=== PATIENT | female | born 1975 | race Caucasian/White ===

== ENCOUNTER 2016-08-20 09:43 | Emergency (ER) | payer MEDICARE, OTHER ==
[~2016-08-20 09:43] MED LIST: ASPIRIN EC81 MG PO
[2016-08-20 11:23] LABS: HEMOGLOBIN 11.7 gm/dl (12.3-15.3); RED BLOOD COUNT 3.53 M/UL (4.00-5.10); WHITE BLOOD COUNT 5.9 K/UL (4.5-11.0)
== END 2016-08-20 15:50 | disposition home or self-care (01) ==
LOC: ER1 09:43
PROVIDERS: Physician Assistant
DX: R51 Headache (principal); R11.2 Nausea with vomiting, unspecified; I25.2 Old myocardial infarction; E11.22 Type 2 diabetes mellitus with diabetic chronic kidney disease; I12.9 Hypertensive chronic kidney disease with stage 1 through stage 4 chronic kidney disease, or unspecified chronic kidney disease; N18.9 Chronic kidney disease, unspecified; Z99.2 Dependence on renal dialysis; Z95.5 Presence of coronary angioplasty implant and graft; Z88.2 Allergy status to sulfonamides; Z88.5 Allergy status to narcotic agent; Z88.8 Allergy status to other drugs, medicaments and biological substances; Z79.82 Long term (current) use of aspirin; Z79.899 Other long term (current) drug therapy
CPT/HCPCS: 36415; 70450; 80053; 82150; 82550; 82553; 83690; 83874; 84484; 84703; 85025; 93005; 96372; 99284; J2270; J2405

== ENCOUNTER 2016-09-17 18:26 | Emergency (ER) | payer MEDICARE, OTHER ==
[2016-09-17 23:46] LABS: HEMOGLOBIN 12.9 gm/dl (12.3-15.3); RED BLOOD COUNT 3.9 M/UL (4.00-5.10); WHITE BLOOD COUNT 6.9 K/UL (4.5-11.0)
== END 2016-09-18 05:25 | disposition home or self-care (01) ==
LOC: ER1 18:26
PROVIDERS: Specialist/Technologist Athletic Trainer
DX: R51 Headache (principal); R07.9 Chest pain, unspecified; G43.909 Migraine, unspecified, not intractable, without status migrainosus; I12.0 Hypertensive chronic kidney disease with stage 5 chronic kidney disease or end stage renal disease; E11.22 Type 2 diabetes mellitus with diabetic chronic kidney disease; N18.6 End stage renal disease; I25.10 Atherosclerotic heart disease of native coronary artery without angina pectoris; I25.2 Old myocardial infarction; Z88.1 Allergy status to other antibiotic agents; Z88.2 Allergy status to sulfonamides; Z88.5 Allergy status to narcotic agent; Z88.8 Allergy status to other drugs, medicaments and biological substances; Z99.2 Dependence on renal dialysis; Z91.041 Radiographic dye allergy status; Z79.02 Long term (current) use of antithrombotics/antiplatelets; Z79.899 Other long term (current) drug therapy
CPT/HCPCS: 70450; 71010; 80053; 82550; 82553; 83735; 83874; 84100; 84484; 85025; 93005; 99284; J2270; J2550; J7050

== ENCOUNTER 2016-09-19 23:54 | Inpatient (IN) | payer MEDICARE, OTHER ==
[~2016-09-19] VITALS: Ht 149.9 cm; Wt 52.2 kg
[2016-09-20 01:10] LABS: HEMOGLOBIN 12.9 gm/dl (12.3-15.3); RED BLOOD COUNT 3.89 M/UL (4.00-5.10)
[2016-09-20 01:14] LABS: WHITE BLOOD COUNT 13.1 K/UL (4.5-11.0)
[2016-09-20] MEDS ORDERED: HYDRALAZINE HCL50 MG PO (11:17)
[2016-09-20] MEDS ORDERED: ALPRAZOLAM ER1 MG PO (11:25)
[2016-09-20] MEDS ORDERED: PLAVIX75 MG PO (11:26)
[2016-09-20] MEDS ORDERED: CLARITIN10 M2 PO (11:26)
[2016-09-20] MEDS ORDERED: DIALYVITE 8000.8 MG PO (11:27)
[2016-09-20] MEDS ORDERED: PHOSLO 667 MG667 MG PO (11:29)
[2016-09-20] MEDS ORDERED: NOVOLOG 10100 UNITS1 SC (11:31)
[2016-09-21 05:08] LABS: HEMOGLOBIN 10.4 gm/dl (12.3-15.3); RED BLOOD COUNT 3.24 M/UL (4.00-5.10); WHITE BLOOD COUNT 10.3 K/UL (4.5-11.0)
[2016-09-22 03:25] LABS: HEMOGLOBIN 10.5 gm/dl (12.3-15.3); RED BLOOD COUNT 3.26 M/UL (4.00-5.10)
[2016-09-22 03:27] LABS: WHITE BLOOD COUNT 7.6 K/UL (4.5-11.0)
[2016-09-23 04:15] LABS: HEMOGLOBIN 10.6 gm/dl (12.3-15.3); RED BLOOD COUNT 3.24 M/UL (4.00-5.10); WHITE BLOOD COUNT 6.1 K/UL (4.5-11.0)
[2016-09-24 04:12] LABS: HEMOGLOBIN 13.1 gm/dl (12.3-15.3); RED BLOOD COUNT 3.99 M/UL (4.00-5.10); WHITE BLOOD COUNT 7.7 K/UL (4.5-11.0)
== END 2016-09-24 22:23 | disposition left against medical advice (07) | DRG 280 ==
LOC: ER1 23:54 → ZEROF 09-20 07:57 → CCU 09-20 07:57
PROVIDERS: Emergency Medicine; Family Medicine; Internal Medicine; Internal Medicine Interventional Cardiology; Internal Medicine Nephrology; ADMIT Internal Medicine
PROC: 05HM33Z Insertion of Infusion Device into Right Internal Jugular Vein, Percutaneous Approach (ICD-10-PCS; principal; 2016-09-20)
PROC: 06HM33Z Insertion of Infusion Device into Right Femoral Vein, Percutaneous Approach (ICD-10-PCS; 2016-09-20)
PROC: 5A1D60Z (ICD-10-PCS; 2016-09-21)
DX: I21.4 Non-ST elevation (NSTEMI) myocardial infarction (principal); N18.6 End stage renal disease; E10.10 Type 1 diabetes mellitus with ketoacidosis without coma; I12.0 Hypertensive chronic kidney disease with stage 5 chronic kidney disease or end stage renal disease; T86.11 Kidney transplant rejection; Z94.83 Pancreas transplant status; K92.0 Hematemesis; E10.22 Type 1 diabetes mellitus with diabetic chronic kidney disease; I25.10 Atherosclerotic heart disease of native coronary artery without angina pectoris; E86.0 Dehydration; E87.6 Hypokalemia; D63.1 Anemia in chronic kidney disease; E87.5 Hyperkalemia; E78.5 Hyperlipidemia, unspecified; Z95.5 Presence of coronary angioplasty implant and graft; Z99.2 Dependence on renal dialysis; Z96.41 Presence of insulin pump (external) (internal); Z79.02 Long term (current) use of antithrombotics/antiplatelets; Z79.899 Other long term (current) drug therapy; Z88.3 Allergy status to other anti-infective agents; Z88.5 Allergy status to narcotic agent; Z88.2 Allergy status to sulfonamides; Z88.7 Allergy status to serum and vaccine; Z88.8 Allergy status to other drugs, medicaments and biological substances; Z98.890 Other specified postprocedural states; Z82.49 Family history of ischemic heart disease and other diseases of the circulatory system
CPT/HCPCS: ECHO; 36415; 70450; 71010; 80048; 80053; 80061; 81001; 82009; 82550; 82553; 82607; 82746; 82800; 82962; 83036; 83540; 83605; 83690; 83735; 83874; 84100; 84132; 84439; 84443; 84484; 85014; 85018; 85025; 85027; 87040; 87086; 90935; 90937; 93005; 93306; 96372; 96374; 96375; 99284; 99291; C9113; J0696; J1815; J2270; J2405; J2550; J7030; J7050